=== PATIENT | female | born 1995 | race African-American/Black ===

== ENCOUNTER 2024-12-28 19:37 | Emergency (ER) | payer MEDICAID ==
[~2024-12-28] VITALS: Ht 147.3 cm; Wt 73.0 kg
[2024-12-28 19:52] VITALS: O2SAT 99
[2024-12-28 20:59] LABS: BASOPHILS % 0.2 % (0.0-2.0); EOSINOPHILS % 0.5 % (0.0-5.0); HEMATOCRIT. 35.6 % (36.0-48.0); HEMOGLOBIN. 11.5 g/dL (12.0-16.0); LYMPHOCYTES % 16.3 % (20.0-50.0); MEAN PLATELET VOLUME 6.4 fl (7.4-10.4); MONOCYTES % 8.9 % (2.0-8.0); NEUTROPHILS % 74.1 % (40.0-76.0); PLATELET 427 x1000/uL (130-400); RED BLOOD CELL COUNT 4.83 mill/uL (4.2-5.4); RED CELL DISTRIBUTION WIDTH 15.0 % (11.6-14.6)
[2024-12-28] MEDS: DIPHENHYDRAMINE 50MG/ML VIAL IV ONE (21:16)
[2024-12-28] MEDS: SODIUM CHLORIDE 0.9% 1,000 ML IV ONE (21:16)
[2024-12-28] MEDS: METOCLOPRAMIDE HCL 10MG/2ML VIAL IV ONE (21:16)
[2024-12-28] MEDS: FAMOTIDINE 20MG/2ML VIAL IV ONE (21:16)
[2024-12-28 21:18] LABS: CREATININE 0.6 mg/dL (0.6-1.0); UREA NITROGEN BLOOD 6 mg/dL (9-23)
[2024-12-28 21:20] LABS: ASPARTATE AMINOTRANSFERASE 19 IU/L (<34); BILIRUBIN DIRECT 0.1 mg/dL (<=3.0); BILIRUBIN TOTAL 0.4 mg/dL (0.1-1.0); PROTEIN TOTAL 7.6 g/dL (6.0-8.3)
[2024-12-28 21:34] LABS: B-HCG QUANTITATIVE 159988 mIU/mL (<6)
[2024-12-28] MEDS ORDERED: DOXY1TAB3 MT (23:06)
[2024-12-28 23:13] VITALS: BP 109/63; PULSE 75; RESP 22; TEMP 36.8; O2SAT 100
== END 2024-12-28 23:20 | disposition home or self-care (01) ==
LOC: ER 19:37
DX: O21.0 Mild hyperemesis gravidarum (principal); R10.2 Pelvic and perineal pain; Z3A.08 8 weeks gestation of pregnancy
CPT/HCPCS: 80076; 80048; 84702; 83690; 85025; 36415; 76801; 76817; 93005; 96374; 96375; 99285; J1200; J1308; J2765; J7030; Z7610

== ENCOUNTER 2025-01-03 14:20 | Emergency (ER) | payer MEDICAID ==
[~2025-01-03] VITALS: Ht 147.3 cm; Wt 64.0 kg
[~2025-01-03 14:20] MED LIST: DOXY1TAB3 MT
[2025-01-03 14:34] VITALS: O2SAT 97
[2025-01-03] MEDS ORDERED: FAMOTIDINE 20MG/2ML VIAL IV ONE (15:00)
[2025-01-03 15:21] LABS: BASOPHILS % 0.4 % (0.0-2.0); EOSINOPHILS % 0.4 % (0.0-5.0); HEMATOCRIT. 39.9 % (36.0-48.0); HEMOGLOBIN. 12.8 g/dL (12.0-16.0); LYMPHOCYTES % 14.7 % (20.0-50.0); MEAN PLATELET VOLUME 6.6 fl (7.4-10.4); MONOCYTES % 10.8 % (2.0-8.0); NEUTROPHILS % 73.7 % (40.0-76.0); PLATELET 512 x1000/uL (130-400); RED BLOOD CELL COUNT 5.45 mill/uL (4.2-5.4); RED CELL DISTRIBUTION WIDTH 15.0 % (11.6-14.6)
[2025-01-03 15:34] LABS: CREATININE 0.7 mg/dL (0.6-1.0); UREA NITROGEN BLOOD 8 mg/dL (9-23)
[2025-01-03 15:36] LABS: ASPARTATE AMINOTRANSFERASE 26 IU/L (<34); BILIRUBIN DIRECT 0.3 mg/dL (<=3.0); BILIRUBIN TOTAL 0.7 mg/dL (0.1-1.0); PROTEIN TOTAL 8.4 g/dL (6.0-8.3)
[2025-01-03 15:41] LABS: INR 1.1
[2025-01-03] MEDS: METOCLOPRAMIDE HCL 10MG/2ML VIAL IV ONE (15:52)
[2025-01-03] MEDS: FAMOTIDINE 20MG/2ML VIAL IV SCH (15:52)
[2025-01-03] MEDS: SODIUM CHLORIDE 0.9% 1,000 ML IV ONE (15:53)
[2025-01-03] MEDS: DIPHENHYDRAMINE 50MG/ML VIAL IV ONE (15:53)
[2025-01-03] MEDS: DEXT 5%/0.9% NACL 1,000 ML IV ONE (16:24)
[2025-01-03] MEDS ORDERED: ONDA-239 PO (16:30)
[2025-01-03 19:28] VITALS: BP 127/81; PULSE 90; RESP 14; TEMP 36.7; O2SAT 98
== END 2025-01-03 19:34 | disposition home or self-care (01) ==
LOC: ER 14:20 → CMPBEDREQ 01-04 09:55
DX: O99.281 Endocrine, nutritional and metabolic diseases complicating pregnancy, first trimester (principal); O26.891 Other specified pregnancy related conditions, first trimester; R11.10 Vomiting, unspecified; E86.0 Dehydration; Z3A.09 9 weeks gestation of pregnancy; Z98.890 Other specified postprocedural states
CPT/HCPCS: 80076; 80048; 82010; 83690; 83735; 85025; 85610; 36415; 96361; 96374; 96375; 99284; J1200; J1308; J2765; J7030; Z7610

== ENCOUNTER 2025-01-05 15:22 | Inpatient (IN) | payer MEDICAID ==
[~2025-01-05] VITALS: Ht 165.1 cm; Wt 66.2 kg
[~2025-01-05 15:22] MED LIST changes: +ONDA-239 PO
[2025-01-05 15:37] VITALS: O2SAT 99
[2025-01-05 16:51] LABS: BASOPHILS % 0.6 % (0.0-2.0); EOSINOPHILS % 0.5 % (0.0-5.0); HEMATOCRIT. 36.2 % (36.0-48.0); HEMOGLOBIN. 11.8 g/dL (12.0-16.0); LYMPHOCYTES % 19.2 % (20.0-50.0); MEAN PLATELET VOLUME 6.7 fl (7.4-10.4); MONOCYTES % 9.1 % (2.0-8.0); NEUTROPHILS % 70.6 % (40.0-76.0); PLATELET 452 x1000/uL (130-400); RED BLOOD CELL COUNT 4.97 mill/uL (4.2-5.4); RED CELL DISTRIBUTION WIDTH 15.1 % (11.6-14.6)
[2025-01-05 16:57] LABS: CREATININE 0.5 mg/dL (0.6-1.0); UREA NITROGEN BLOOD < 5 mg/dL (9-23)
[2025-01-05 17:32] LABS: TROPONIN I HIGH SENSITIVITY < 4 ng/L (3.0-34)
[2025-01-05 17:44] LABS: B-HCG QUANTITATIVE 138172 mIU/mL (<6)
[2025-01-05] MEDS: ONDANSETRON HCL 4MG/2ML INJ IV ONE (20:03)
[2025-01-05] MEDS: DEXT 5%/0.9% NACL 1,000 ML IV ONE (20:09)
[2025-01-05 20:11] LABS: CLARITY URINE CLEAR (CLEAR); COLOR URINE DARK YELLOW (YELLOW); GLUCOSE URINE NEGATIVE (NEGATIVE); KETONES URINE 4+ (NEGATIVE); LEUKOCYTE ESTERASE URINE TRACE (NEGATIVE); NITRITE URINE NEGATIVE (NEGATIVE); OCCULT BLOOD URINE NEGATIVE (NEGATIVE); PH URINE 6.0 (4.5-8.0); PROTEIN URINE 1+ (NEGATIVE); SPECIFIC GRAVITY URINE 1.027 (1.005-1.030); UROBILINOGEN URINE 1.0 E.U./dL (0.2-1.0)
[2025-01-05 20:22] LABS: BACTERIA URINE TRACE; RBC URINE 0-2 /hpf (0-2); SQUAMOUS EPITHELIAL CELL URINE 1+ /lpf (RARE/1+)
[2025-01-05] MEDS: SODIUM CHLORIDE 0.9% 1,000 ML IV SCH (22:56)
[2025-01-05 23:35] VITALS: BP 113/78; PULSE 85; RESP 19; TEMP 36.418
[2025-01-06] VITALS: BP 120/72; PULSE 83; RESP 16; TEMP 36.6; O2SAT 100
[2025-01-06 04:00] VITALS: BP 120/60; PULSE 88; RESP 19; TEMP 36.4; O2SAT 100
[2025-01-06] MEDS: PANTOPRAZOLE 40MG DR TABLET PO SCH (06:35)
[2025-01-06] MEDS: ONDANSETRON HCL 4MG/2ML INJ IV PRN (06:36)
[2025-01-06 07:08] LABS: BASOPHILS % 0.5 % (0.0-2.0); EOSINOPHILS % 1.2 % (0.0-5.0); HEMATOCRIT. 31.9 % (36.0-48.0); HEMOGLOBIN. 10.6 g/dL (12.0-16.0); LYMPHOCYTES % 26.9 % (20.0-50.0); MEAN PLATELET VOLUME 7.0 fl (7.4-10.4); MONOCYTES % 10.8 % (2.0-8.0); NEUTROPHILS % 60.6 % (40.0-76.0); PLATELET 379 x1000/uL (130-400); RED BLOOD CELL COUNT 4.39 mill/uL (4.2-5.4); RED CELL DISTRIBUTION WIDTH 15.1 % (11.6-14.6)
[2025-01-06 07:55] LABS: CREATININE 0.4 mg/dL (0.6-1.0); UREA NITROGEN BLOOD < 5 mg/dL (9-23)
[2025-01-06 08:00] VITALS: BP 111/71; PULSE 96; RESP 19; TEMP 36.4; O2SAT 100
[2025-01-06 12:00] VITALS: BP 118/66; PULSE 85; RESP 18; TEMP 36.4; O2SAT 100
[2025-01-06] MEDS ORDERED: ONDANSETRON HCL 4MG/2ML INJ IV PRN (15:15)
[2025-01-06 16:00] VITALS: BP 129/74; PULSE 71; RESP 18; TEMP 36.2; O2SAT 100
[2025-01-06] MEDS ORDERED: [UNRECOGNIZED DRUG - REMARK] IV SCH (17:00)
[2025-01-06] MEDS: METOCLOPRAMIDE HCL 10MG/2ML VIAL IV SCH (17:42)
[2025-01-06] MEDS: [UNRECOGNIZED DRUG - REMARK] IV SCH (17:42)
[2025-01-06 20:00] VITALS: BP 122/73; PULSE 90; RESP 18; TEMP 36.7; O2SAT 98
[2025-01-07] VITALS: BP 122/69; PULSE 83; RESP 18; TEMP 36.5; O2SAT 99
[2025-01-07 04:00] VITALS: BP 106/60; PULSE 82; RESP 18; TEMP 36.8; O2SAT 99
[2025-01-07 08:00] VITALS: BP 118/70; PULSE 95; RESP 17; TEMP 36.5; O2SAT 97
[2025-01-07] MEDS ORDERED: ONDA-239 PO (11:25)
[2025-01-07] MEDS ORDERED: METO-293 MT (11:25)
[2025-01-07 15:30] VITALS: BP 130/60; PULSE 100; RESP 18; TEMP 97.5
== END 2025-01-07 15:49 | disposition home or self-care (01) | DRG 566 ==
LOC: ER 15:22 → EDBEDREQ 20:54 → EDBEDREQTM 20:54 → ENRESERV 21:17 → 6EST 21:43
PROVIDERS: ADMIT Internal Medicine; ATTEND Internal Medicine
DX: O21.0 Mild hyperemesis gravidarum (principal); O26.811 Pregnancy related exhaustion and fatigue, first trimester; Z3A.09 9 weeks gestation of pregnancy
CPT/HCPCS: 36415; 71045; 76801; 80048; 81003; 82010; 84484; 84702; 85025; 85379; 93005; 99291; J2405; J2765; J3411; J3490; J7030; J7042; J7120